=== PATIENT | female | born 1965 | race Two or more races ===

== ENCOUNTER 2018-01-24 15:33 | Inpatient (IN) | payer MEDICARE, OTHER, MEDICAID ==
[~2018-01-24] VITALS: Ht 158.8 cm; Wt 103.4 kg
[2018-01-24] MEDS ORDERED: ZOLPIDEM TARTRATE 5 MG TABLET PO PRN (16:30)
[2018-01-24] MEDS ORDERED: MAG HYDROX/AL HYDROX/SIMETH 30 ML UDC PO PRN (16:30)
[2018-01-24] MEDS ORDERED: MAGNESIUM HYDROXIDE 30 ML UDC PO PRN (16:30)
[2018-01-24] MEDS ORDERED: ACETAMINOPHEN 325 MG TABLET PO PRN (16:30)
[2018-01-24] MEDS ORDERED: LORAZEPAM 0.5 MG TABLET PO PRN (16:30)
[2018-01-24 16:40] VITALS: BP 122/66
[2018-01-24] MEDS ORDERED: NAPR500T6 PO (17:00)
[2018-01-24] MEDS ORDERED: LEVE500T20 PO (17:00)
[2018-01-24] MEDS ORDERED: ZIPR20CA2 PO (17:00)
[2018-01-24] MEDS ORDERED: LEVE500T9 PO (17:00)
[2018-01-24] MEDS ORDERED: HYDR-552 PO (17:00)
[2018-01-24] MEDS ORDERED: DULO60CA63 PO (17:00)
[2018-01-24] MEDS ORDERED: TOPI25TA49 PO (17:00)
[2018-01-24] MEDS ORDERED: LORA-259 PO (17:00)
[2018-01-24] MEDS ORDERED: ASPI-1169 PO (17:00)
--- NOTE | 2018-01-24 17:30 | NUR ---
GPS/RN - Admission Admitted a 52 y/o female from [facility] (), on a 5150 hold for DTS and GD. Patient is alert and oriented x 3, calm at this time, ambulatory with steady gait, denies pain, no apparent distress seen. Patient refused skin assessment. Patient oriented to the room. All belongings accounted and checked for contraband. Reviewed patient's rights and she verbalized full understanding. Fall precautions initiated. Patient will be under the care of Dr. Berrios, orders obtained. Will continue to monitor q15 mins for safety and behavior.
--- NOTE | 2018-01-24 18:00 | NUR ---
GPS/RN - Notes Paged Jasvir Thomas NP for medication reconciliation, awaiting for call back.
[2018-01-24 19:56] VITALS: BP 135/83
[2018-01-24 20:00] VITALS: BP 135/83
--- NOTE | 2018-01-24 22:51 | NUR ---
GPS/TELECOMMUNICATION TOWER TECHNICIAN NOTES: PT. AGITATED AND YELLING IN THE HALLS. PT. ALSO FORCING HERSELF TO SIT ON THE FLOOR. ATIVAN PO PRN OFFERED. PT. REFUSED. WILL CONTINUE TO MONITOR.
[2018-01-24] MEDS: LEVETIRACETAM (250 MG) 250 MG TABLET PO SCH (23:18)
[2018-01-24] MEDS: HYDROCODONE/APAP 5/325MG 1 EACH TABLET PO PRN (23:19)
[2018-01-25 07:36] LABS: CHOLESTEROL 218 mg/dL (<200); HDL CHOLESTEROL 51 mg/dL (40-60); LDL 145 mg/dL (0-99); TRIGLYCERIDES 146 mg/dL (30-150)
[2018-01-25 07:39] LABS: ALBUMIN 4.1 g/dL (3.4-5.0); BILIRUBIN,TOTAL 0.5 mg/dL (0.2-1.0); CREATININE 0.9 mg/dL (0.6-1.3); POTASSIUM 3.8 mmol/L (3.5-5.1); TOTAL PROTEIN, SERUM 7.4 g/dL (6.4-8.2)
[2018-01-25 08:00] VITALS: BP 125/69
[2018-01-25] MEDS: NAPROXEN 500 MG TABLET PO SCH ×2 (09:40→16:33)
[2018-01-25] MEDS: ASPIRIN 81 MG TAB.CHEW PO SCH (09:40)
[2018-01-25] MEDS: CEPHALEXIN MONOHYDRATE 500 MG CAPSULE PO SCH ×2 (09:40→21:50)
[2018-01-25] MEDS: TOPIRAMATE 25 MG TABLET PO SCH ×2 (09:40→21:50)
[2018-01-25] MEDS: ZIPRASIDONE 20 MG CAPSULE PO SCH ×2 (10:46→16:33)
[2018-01-25] MEDS: LEVETIRACETAM (250 MG) 250 MG TABLET PO SCH ×2 (10:46→22:09)
[2018-01-25] MEDS: LORAZEPAM 0.5 MG TABLET PO PRN ×2 (10:47→23:57)
--- NOTE | 2018-01-25 15:58 | NUR ---
Initial Discharge Plan: Pt resides at [address] [place] [address]. Pts # is . Upon discharge pt would like to return home. SW will follow up to ensure pt is safely and appropriately discharged. Pts contact lens inspector is her brother Deion Rodriguez, stating "he is going to be my ride and pick me up." Pt however was unable to recall his telephone #.
[2018-01-25 16:00] VITALS: BP 100/69
[2018-01-25 20:00] VITALS: BP 128/83
[2018-01-25] MEDS: diphenhydrAMINE HCL 50 MG CAPSULE PO PRN (21:50)
[2018-01-25] MEDS ORDERED: DULOXETINE HCL 30 MG CAPSULE.DR PO SCH (22:00)
[2018-01-26] MEDS: LORAZEPAM 0.5 MG TABLET PO PRN ×3 (06:40→20:13)
[2018-01-26] MEDS: TOPIRAMATE 25 MG TABLET PO SCH ×2 (08:06→22:05)
[2018-01-26] MEDS: NAPROXEN 500 MG TABLET PO SCH ×2 (08:06→16:59)
[2018-01-26] MEDS: LEVETIRACETAM (250 MG) 250 MG TABLET PO SCH ×2 (08:06→22:04)
[2018-01-26] MEDS: ASPIRIN 81 MG TAB.CHEW PO SCH (08:06)
[2018-01-26] MEDS: ZIPRASIDONE 20 MG CAPSULE PO SCH ×2 (08:06→16:59)
[2018-01-26] MEDS: CEPHALEXIN MONOHYDRATE 500 MG CAPSULE PO SCH ×2 (08:06→22:04)
[2018-01-26 08:33] VITALS: BP 137/90
[2018-01-26] MEDS: HYDROCODONE/APAP 5/325MG 1 EACH TABLET PO PRN (12:36)
[2018-01-26] MEDS ORDERED: ZIPRASIDONE 20 MG CAPSULE PO ONE (13:00)
[2018-01-26 16:00] VITALS: BP 119/84
[2018-01-26 20:00] VITALS: BP 122/77
[2018-01-26] MEDS: diphenhydrAMINE HCL 50 MG CAPSULE PO PRN (22:05)
[2018-01-26] MEDS: DULOXETINE HCL 20 MG CAPSULE.DR PO SCH (22:05)
[2018-01-27 08:00] VITALS: BP 126/79
[2018-01-27] MEDS: TOPIRAMATE 25 MG TABLET PO SCH ×2 (09:13→21:26)
[2018-01-27] MEDS: ZIPRASIDONE 20 MG CAPSULE PO SCH (09:14)
[2018-01-27] MEDS: LEVETIRACETAM (250 MG) 250 MG TABLET PO SCH ×2 (09:15→21:25)
[2018-01-27] MEDS: LORAZEPAM 0.5 MG TABLET PO PRN ×2 (09:18→13:54)
[2018-01-27] MEDS: ASPIRIN 81 MG TAB.CHEW PO SCH (09:18)
[2018-01-27] MEDS: NAPROXEN 500 MG TABLET PO SCH ×2 (09:18→17:56)
[2018-01-27] MEDS: CEPHALEXIN MONOHYDRATE 500 MG CAPSULE PO SCH ×2 (09:18→21:24)
--- NOTE | 2018-01-27 09:18 | NUR ---
RN NOTES ADMINISTERED ATIVAN 1 MG PO PRN FOR ANXIETY, IRRITABLE EASILY, ARGUMENTATIVE, V/S TAKEN BP 126/79, P-87, CONTINUED MONITORING.
[2018-01-27] MEDS: HYDROCODONE/APAP 5/325MG 1 EACH TABLET PO PRN ×2 (10:40→18:21)
--- NOTE | 2018-01-27 10:40 | NUR ---
RN NOTES ADMINISTERED NARCO 5/325 MG PO PRN FOR GENERALIZED PAIN 05/14, PER PATIENT REQUEST, V/S TAKEN BP- 126/ 79, P-87, ENCOURAGED TO INCREASE FLUID INTAKE, CONTINUED MONITORING.
--- NOTE | 2018-01-27 13:54 | NUR ---
RN NOTES ADMINISTERED ATIVAN 1 MG PO PRN FOR ANXIETY, PARANOIA, HARD TO FOLLOW DIRECTION, V/S TAKEN STABLE BP 129/81, P-90, CONTINUED MONITORING.
[2018-01-27] MEDS ORDERED: LORAZEPAM 0.5 MG TABLET PO PRN (14:00)
[2018-01-27 15:47] VITALS: BP 128/80
--- NOTE | 2018-01-27 18:21 | NUR ---
rn notes administered narco 5/325 mg po prn for generalized pain 04/14 per patient request, v/s taken bp- 128/80, p-88, continued monitoring.
[2018-01-27 20:26] VITALS: BP 136/93
[2018-01-27] MEDS: DULOXETINE HCL 20 MG CAPSULE.DR PO SCH (21:25)
[2018-01-27] MEDS: diphenhydrAMINE HCL 50 MG CAPSULE PO PRN (22:29)
[2018-01-28] MEDS: LORAZEPAM 0.5 MG TABLET PO PRN ×2 (00:21→06:25)
[2018-01-28 08:00] VITALS: BP 134/92
[2018-01-28] MEDS: LEVETIRACETAM (250 MG) 250 MG TABLET PO SCH ×2 (08:29→21:55)
[2018-01-28] MEDS: NAPROXEN 500 MG TABLET PO SCH ×2 (08:29→17:02)
[2018-01-28] MEDS: CEPHALEXIN MONOHYDRATE 500 MG CAPSULE PO SCH ×2 (08:29→21:53)
[2018-01-28] MEDS: ASPIRIN 81 MG TAB.CHEW PO SCH (08:29)
[2018-01-28] MEDS: TOPIRAMATE 25 MG TABLET PO SCH ×2 (08:29→21:54)
[2018-01-28] MEDS: OLANZAPINE 5 MG/TAB.RAPDIS PO SCH ×2 (09:35→17:02)
[2018-01-28] MEDS: HYDROCODONE/APAP 5/325MG 1 EACH TABLET PO PRN (09:39)
--- NOTE | 2018-01-28 09:47 | NUR ---
GPS/RN-NOTES PATIENT C/O 05/14 HEADACHE AND REQUESTING FOR NORCO.NORCO 5/325MG 1TAB P.O GIVEN PRN ORDER. WILL CONT. MONITORING FOR SAFETY.
--- NOTE | 2018-01-28 14:22 | NUR ---
Discharge Planning: SW spoke to pt for discharge planning purposes. SW sought clarity as to where patient would be discharging once she is stable and ready. Per pt, she would like to discharge home, [address] [place] [address]. Pt reported that she and her son pay rent. SW discussed alternative placement options for transitional purposes however pt denied stating, "I want to return to my home, that's my home, I just need in home care" (i.e. for showers and errands) once discharged. FAIZA obtained verbal consent from pt to contact her son, Bryce for discharge planning purposes. SW contacted pts son, however was unable to speak to him; a detailed message was left asking for a call back. SW will follow up to ensure pt is safely and adequately placed.
[2018-01-28 16:00] VITALS: BP 120/69
[2018-01-28 17:04] LABS: MAGNESIUM 2.3 mg/dL (1.8-2.4)
[2018-01-28 17:44] LABS: THYROID STIMULATING HORMONE 1.04 uIU/mL (0.358-3.74)
[2018-01-28 20:26] VITALS: BP 122/75
[2018-01-28] MEDS: DULOXETINE HCL 20 MG CAPSULE.DR PO SCH (21:53)
--- NOTE | 2018-01-28 22:00 | NUR ---
GPS RN NOTES: PATIENT NOTED TO BE DELUSIONAL THIS TIME,SHE STATED "I RECRUIT FOR [employer], BECAUSE THEY TRY TO SCAM US" AT THE SAME TIME LAUGHING AT THE STAFF SHE MADE THIS STATEMENT. REALITY ORIENTATION DONE. LIMIT SETTING DONE. ATTENDED TO PATIENT'S NEEDS. WILL ENDORSE THE SAID COMMENT TO THE DAY SHIFT NURSE.
[2018-01-28 23:02] VITALS: BP 115/50
[2018-01-29] MEDS: LORAZEPAM 0.5 MG TABLET PO PRN ×3 (03:00→15:34)
[2018-01-29 05:37] VITALS: BP 112/69
[2018-01-29] MEDS: HYDROCODONE/APAP 5/325MG 1 EACH TABLET PO PRN (05:37)
[2018-01-29 08:00] VITALS: BP 119/68
[2018-01-29] MEDS: LEVETIRACETAM (250 MG) 250 MG TABLET PO SCH ×2 (08:28→21:11)
[2018-01-29] MEDS: OLANZAPINE 5 MG/TAB.RAPDIS PO SCH ×2 (08:29→16:16)
[2018-01-29] MEDS: ASPIRIN 81 MG TAB.CHEW PO SCH (08:29)
[2018-01-29] MEDS: NAPROXEN 500 MG TABLET PO SCH ×2 (08:29→16:15)
[2018-01-29] MEDS: TOPIRAMATE 25 MG TABLET PO SCH ×2 (08:29→21:11)
[2018-01-29] MEDS: CEPHALEXIN MONOHYDRATE 500 MG CAPSULE PO SCH ×2 (08:30→21:10)
--- NOTE | 2018-01-29 08:51 | NUR ---
RN NOTE: PATIENT IS ANXIOUS. PRN LORAZEPAM 1MG. GIVEN.
--- NOTE | 2018-01-29 15:34 | NUR ---
PATIENT IS ANXIOUS. LORAZEPAM 1MG GIVEN. Addendum: 01/29/18 at 1539 by LATISHA HANKS RN THE PATIENT IS VERY SARCASTIC. PATIENT IS MAKING OTHER PATIENT AGITATED BY TRYING TO TALK TO HIM AND TEACHING HIM HER IDEOLOGIES.
[2018-01-29 16:12] VITALS: BP 141/75
[2018-01-29 20:00] VITALS: BP 122/77
[2018-01-29] MEDS: DULOXETINE HCL 20 MG CAPSULE.DR PO SCH (21:31)
[2018-01-30 08:00] VITALS: BP 135/85
[2018-01-30] MEDS: NAPROXEN 500 MG TABLET PO SCH ×2 (08:19→17:15)
[2018-01-30] MEDS: LEVETIRACETAM (250 MG) 250 MG TABLET PO SCH ×2 (08:19→21:22)
[2018-01-30] MEDS: TOPIRAMATE 25 MG TABLET PO SCH (08:19)
[2018-01-30] MEDS: CEPHALEXIN MONOHYDRATE 500 MG CAPSULE PO SCH ×2 (08:19→20:48)
[2018-01-30] MEDS: LORAZEPAM 0.5 MG TABLET PO PRN ×2 (08:19→13:05)
[2018-01-30] MEDS: OLANZAPINE 5 MG/TAB.RAPDIS PO SCH ×3 (08:19→17:15)
[2018-01-30] MEDS: ASPIRIN 81 MG TAB.CHEW PO SCH (08:19)
[2018-01-30] MEDS: HYDROCODONE/APAP 5/325MG 1 EACH TABLET PO PRN ×2 (10:55→21:39)
--- NOTE | 2018-01-30 10:56 | NUR ---
RN NOTE: PATIENT STATES SHE HAS PAIN. 8/10 PAIN. PATIENT GIVEN HYDROCODONE.
--- NOTE | 2018-01-30 13:06 | NUR ---
RN NOTE: PATIENT IS ANXIOUS. LORAZEPAM 1MG GIVEN.
--- NOTE | 2018-01-30 15:57 | NUR ---
Discharge Planning: SW spoke to pts brother, Nilson Garrido for discharge planning purposes. Per pts brother, pt could discharge back to their home "we just want her to be better and take her medication." Pts brother discussed concerns about pt not being med compliant which leads to her erratic behavior. SW obtained Deion's contact information (pts other brother) for discharge planning purposes (Deion Garrido [phone]). SW informed pt of having spoken to her family and that family was in agreement with her return home. Pt agreed to discharge home. Pt was in agreement with having her brother Deion pick her up from the hospital once she is ready to discharge. SW will follow up to ensure pt is safely and adequately discharged.
[2018-01-30 16:00] VITALS: BP 122/76
[2018-01-30 19:59] VITALS: BP 110/65
[2018-01-30] MEDS: DULOXETINE HCL 20 MG CAPSULE.DR PO SCH (21:22)
[2018-01-30] MEDS: TOPIRAMATE 100 MG TABLET PO SCH (21:29)
--- NOTE | 2018-01-30 21:39 | NUR ---
GPS NOTE: PATIENT C/O HEADACHE 05/14, PATIENT REQUESTED FOR NORCO. VSS. ADMINISTERED NORCO 5/325MG PO ORDERED. WILL CONTINUE TO MONITOR.
[2018-01-31] MEDS: HYDROCODONE/APAP 5/325MG 1 EACH TABLET PO PRN ×2 (05:59→15:29)
--- NOTE | 2018-01-31 06:01 | NUR ---
GPS NOTE: PATIENT C/O HEADACHE 05/14, PATIENT REQUESTED FOR NORCO. VSS. ADMINISTERED NORCO 5/325MG PO ORDERED. WILL CONTINUE TO MONITOR.
[2018-01-31] MEDS: LORAZEPAM 0.5 MG TABLET PO PRN ×2 (06:24→10:42)
--- NOTE | 2018-01-31 06:24 | NUR ---
GPS/RN PATIENT IS ANXIOUS AND RESTLESS. PATIENT IS REQUESTING FOR ATIVAN. VSS. ADMINISTERED ATIVAN 1MG PO ORDERED. WILL CONTINUE TO MONITOR FOR SAFETY.
[2018-01-31 08:00] VITALS: BP 127/88
[2018-01-31] MEDS: TOPIRAMATE 100 MG TABLET PO SCH ×2 (08:37→20:26)
[2018-01-31] MEDS: ASPIRIN 81 MG TAB.CHEW PO SCH (08:37)
[2018-01-31] MEDS: NAPROXEN 500 MG TABLET PO SCH ×2 (08:37→17:29)
[2018-01-31] MEDS: CEPHALEXIN MONOHYDRATE 500 MG CAPSULE PO SCH ×2 (08:37→20:25)
[2018-01-31] MEDS: OLANZAPINE 5 MG/TAB.RAPDIS PO SCH ×2 (08:42→17:29)
[2018-01-31] MEDS: LEVETIRACETAM (250 MG) 250 MG TABLET PO SCH ×2 (08:42→21:13)
--- NOTE | 2018-01-31 10:00 | NUR ---
RN-CO: Patient is going from one patient to another, instigating them to complain staff. Patient is accusing staff not doing work. " Brain washing" other patient to answer back and not to listen to redirections. When she was redirected, she became argumentative and and angry. Hyperverbal, speech is rapid and her eye contact is intense. Constantly asking staff to give her what she wants. If we discussed about her discharge , she stated " I like it here, Im comfortable here." But when she talks to peers during group activities she is telling them that staff are not nice, RNs are giving wrong medications. Cameras are all over to monitor me. Dr Berrios made aware.
[2018-01-31 16:00] VITALS: BP 150/94
--- NOTE | 2018-01-31 18:56 | NUR ---
RN-CO: Patient had a visitor, patient noted telling them that staff are pushing patient. When her visitors left, she came to the nursing station and stated " My visitors sucks, I don't like them. "Give me the phone and I will call a nicer visitor."
[2018-01-31 20:00] VITALS: BP 113/75
[2018-01-31] MEDS: diphenhydrAMINE HCL 50 MG CAPSULE PO PRN (20:28)
--- NOTE | 2018-01-31 20:33 | NUR ---
C/O INSOMNIA, BENADRYL 50 MG CAP 1 PO GIVEN.
[2018-01-31] MEDS: DULOXETINE HCL 20 MG CAPSULE.DR PO SCH (21:13)
[2018-02-01 08:00] VITALS: BP 128/76
[2018-02-01] MEDS: LEVETIRACETAM (250 MG) 250 MG TABLET PO SCH ×2 (08:15→21:08)
[2018-02-01] MEDS: ASPIRIN 81 MG TAB.CHEW PO SCH (08:16)
[2018-02-01] MEDS: OLANZAPINE 5 MG/TAB.RAPDIS PO SCH ×2 (08:16→16:58)
[2018-02-01] MEDS: NAPROXEN 500 MG TABLET PO SCH ×2 (08:16→16:58)
[2018-02-01] MEDS: TOPIRAMATE 100 MG TABLET PO SCH ×2 (08:20→21:09)
[2018-02-01] MEDS: LORAZEPAM 0.5 MG TABLET PO PRN ×2 (08:20→17:16)
--- NOTE | 2018-02-01 08:23 | NUR ---
NOTE: PATIENT IS ANXIOUS AND RESTLESS LORAZEPAM 1MG GIVEN. WILL CONTINUE MONITORING
[2018-02-01] MEDS: HYDROCODONE/APAP 5/325MG 1 EACH TABLET PO PRN (11:49)
[2018-02-01 16:00] VITALS: BP 151/76
--- NOTE | 2018-02-01 17:19 | NUR ---
GPS RN NOTE: PATIENT IS ANXIOUS REQUESTING ATIVAN , LORAZEPAM 1MG GIVEN. WILL CONTINUE MONITORING.
--- NOTE | 2018-02-01 19:30 | NUR ---
GPS RN NOTE, RECEIVED PATIENT AWAKE AND IN BED, NO S/S OR COMPLAINTS OF PAIN AT THIS TIME. PATIENT IS DISPLAYING NO S/S OF APPARENT DISTRESS AT THIS TIME. PATIENT BREATHING IS UNLABORED WITH EQUAL RISE AND FALL OF THE CHEST. PATIENT IS ALERT AND ORIENTED X 4 ON ROOM AIR WITH A SPO2 OF 93%. PATIENT IS COMPLIANT WITH MEDICATION, ANXIOUS AT TIMES, DEMANDING, MANIPULATIVE, AND NEEDS REORIENTATION. PATIENT DENIES SUICIDE IDEATIONS AND HOMICIDAL IDEATIONS AT THIS TIME. PATIENT ASSISTED WITH TURNING AND REPOSITIONING Q2HR AND PRN FOR COMFORT AND CIRCULATION. PATIENT HAS NO NEEDS AT THIS TIME. PATIENT EDUCATED ON THE USE OF THE CALL MCKENNA. PATIENT SIDE RAILS ARE UP X 2, BED IS LOCKED AND LOW, AND I WILL CONTINUE TO MONITOR THIS PATIENT Q 15 MIN WITH THE HELP OF STAFF.
[2018-02-01 20:00] VITALS: BP 98/57
[2018-02-01] MEDS: DULOXETINE HCL 20 MG CAPSULE.DR PO SCH (21:09)
[2018-02-02] MEDS: HYDROCODONE/APAP 5/325MG 1 EACH TABLET PO PRN (01:58)
--- NOTE | 2018-02-02 01:58 | NUR ---
GPS RN NOTE, PATIENT HAS A COMPLAINT OF LOWER BACK PAIN AT 6 OUT 10 ON THE PAIN SCALE AND IS REQUESTING NORCO AT THIS TIME. PATIENT VITAL SIGNS ARE STABLE. GAVE NORCO 5-325 1 TAB PO Q6HR PRN ORDERED. WILL REASSESS FOR PAIN AND I WILL CONTINUE TO MONITOR THIS PATIENT.
[2018-02-02] MEDS: LORAZEPAM 0.5 MG TABLET PO PRN ×3 (04:21→13:24)
--- NOTE | 2018-02-02 04:21 | NUR ---
GPS RN NOTE, PATIENT HAS A COMPLAINT OF FEELING ANXIOUS AND IS REQUESTING ATIVAN AT THIS TIME. PATIENT VITAL SIGNS ARE STABLE. GAVE ATIVAN 1MG PO Q8HR PRN ORDERED. WILL REASSESS FOR ANXIETY AND I WILL CONTINUE TO MONITOR THIS PATIENT.
[2018-02-02 08:00] VITALS: BP 141/81
[2018-02-02] MEDS: LEVETIRACETAM (250 MG) 250 MG TABLET PO SCH ×2 (08:14→22:21)
[2018-02-02] MEDS: NAPROXEN 500 MG TABLET PO SCH ×2 (08:15→16:40)
[2018-02-02] MEDS: OLANZAPINE 5 MG/TAB.RAPDIS PO SCH ×2 (08:15→16:40)
[2018-02-02] MEDS: ASPIRIN 81 MG TAB.CHEW PO SCH (08:17)
--- NOTE | 2018-02-02 08:17 | NUR ---
RN NOTES PATIENT VERY ANXIOUS, PARANOID, IRRITABLE, INTRUSIVE, HARD TO FOLLOW DIRECTION, ADMINISTERED ATIVAN 1 MG PO PRN PRESCRIBED BY MD, V/S TAKEN BP-141/81, P-90, CONTINUED MONITORING.
[2018-02-02] MEDS: TOPIRAMATE 100 MG TABLET PO SCH ×2 (09:51→22:19)
[2018-02-02 20:00] VITALS: BP 131/74
[2018-02-02] MEDS: DULOXETINE HCL 20 MG CAPSULE.DR PO SCH (22:21)
[2018-02-03] MEDS: LORAZEPAM 0.5 MG TABLET PO PRN ×2 (06:44→12:22)
[2018-02-03 08:00] VITALS: BP 131/73
[2018-02-03] MEDS: OLANZAPINE 5 MG/TAB.RAPDIS PO SCH ×2 (08:41→16:14)
[2018-02-03] MEDS: LEVETIRACETAM (250 MG) 250 MG TABLET PO SCH ×2 (08:42→21:25)
[2018-02-03] MEDS: ASPIRIN 81 MG TAB.CHEW PO SCH (08:42)
[2018-02-03] MEDS: NAPROXEN 500 MG TABLET PO SCH ×2 (08:43→16:14)
[2018-02-03] MEDS: TOPIRAMATE 100 MG TABLET PO SCH ×2 (08:43→21:24)
[2018-02-03] MEDS: HYDROCODONE/APAP 5/325MG 1 EACH TABLET PO PRN (11:04)
--- NOTE | 2018-02-03 11:18 | NUR ---
GPS RN NOTE: PATIENT C/O GENERALIZED PAIN REQUESTED FOR NORCO. VSS. ADMINISTERED NORCO 5/325MG PO ORDERED. WILL CONTINUE TO MONITOR.
[2018-02-03 16:00] VITALS: BP 107/76
[2018-02-03 20:16] VITALS: BP 134/89
[2018-02-03] MEDS: DULOXETINE HCL 20 MG CAPSULE.DR PO SCH (21:25)
[2018-02-03] MEDS: diphenhydrAMINE HCL 50 MG CAPSULE PO PRN (22:57)
[2018-02-04] MEDS: HYDROCODONE/APAP 5/325MG 1 EACH TABLET PO PRN ×2 (02:05→22:59)
[2018-02-04] MEDS: LORAZEPAM 0.5 MG TABLET PO PRN ×2 (05:09→11:30)
[2018-02-04 08:00] VITALS: BP 126/64
[2018-02-04] MEDS: OLANZAPINE 5 MG/TAB.RAPDIS PO SCH ×2 (08:19→16:01)
[2018-02-04] MEDS: LEVETIRACETAM (250 MG) 250 MG TABLET PO SCH ×2 (08:19→21:39)
[2018-02-04] MEDS: NAPROXEN 500 MG TABLET PO SCH ×2 (08:19→16:01)
[2018-02-04] MEDS: ASPIRIN 81 MG TAB.CHEW PO SCH (08:19)
[2018-02-04] MEDS: TOPIRAMATE 100 MG TABLET PO SCH ×2 (08:21→21:40)
--- NOTE | 2018-02-04 11:31 | NUR ---
GPS RN NOTE: PATIENT IS ANXIOUS REQUESTING ATIVAN , LORAZEPAM 1MG GIVEN. WILL CONTINUE MONITORING.
[2018-02-04 16:00] VITALS: BP 102/57
--- NOTE | 2018-02-04 19:23 | NUR ---
GPS RN NOTE, RECEIVED PATIENT AWAKE AND IN BED, NO S/S OR COMPLAINTS OF PAIN AT THIS TIME. PATIENT IS DISPLAYING NO S/S OF APPARENT DISTRESS AT THIS TIME. PATIENT BREATHING IS UNLABORED WITH EQUAL RISE AND FALL OF THE CHEST. PATIENT IS ALERT AND ORIENTED X 4 ON ROOM AIR WITH A SPO2 OF 93%. PATIENT IS COMPLIANT WITH MEDICATION, ANXIOUS AT TIMES, DEMANDING, MANIPULATIVE, NEEDY, COOPERATIVE AT TIMES, AND NEEDS REORIENTATION. PATIENT DENIES SUICIDE IDEATIONS AND HOMICIDAL IDEATIONS AT THIS TIME. PATIENT ASSISTED WITH TURNING AND REPOSITIONING Q2HR AND PRN FOR COMFORT AND CIRCULATION. PATIENT HAS NO NEEDS AT THIS TIME. PATIENT EDUCATED ON THE USE OF THE CALL MCKENNA. PATIENT SIDE RAILS ARE UP X 2, BED IS LOCKED AND LOW, AND I WILL CONTINUE TO MONITOR THIS PATIENT Q 15 MIN WITH THE HELP OF STAFF.
[2018-02-04 19:49] VITALS: BP 120/85
[2018-02-04] MEDS: DULOXETINE HCL 20 MG CAPSULE.DR PO SCH (21:39)
[2018-02-05] MEDS: LORAZEPAM 0.5 MG TABLET PO PRN ×2 (01:02→08:50)
--- NOTE | 2018-02-05 01:02 | NUR ---
GPS RN NOTE, PATIENT HAS A COMPLAINT OF FEELING ANXIOUS AND IS REQUESTING ATIVAN AT THIS TIME. PATIENT VITAL SIGNS ARE STABLE. GAVE ATIVAN 1 MG PO Q4HR PRN ORDERED. WILL REASSESS FOR ANXIETY AND I WILL CONTINUE TO MONITOR THIS PATIENT.
[2018-02-05] MEDS: diphenhydrAMINE HCL 50 MG CAPSULE PO PRN (04:01)
[2018-02-05 08:00] VITALS: BP 127/82
[2018-02-05] MEDS: OLANZAPINE 5 MG/TAB.RAPDIS PO SCH ×2 (08:49→17:17)
[2018-02-05] MEDS: TOPIRAMATE 100 MG TABLET PO SCH (08:50)
[2018-02-05] MEDS: LEVETIRACETAM (250 MG) 250 MG TABLET PO SCH (08:50)
[2018-02-05] MEDS: ASPIRIN 81 MG TAB.CHEW PO SCH (08:50)
[2018-02-05] MEDS: NAPROXEN 500 MG TABLET PO SCH ×2 (08:50→17:16)
[2018-02-05] MEDS: HYDROCODONE/APAP 5/325MG 1 EACH TABLET PO PRN (11:13)
--- NOTE | 2018-02-05 12:48 | NUR ---
Discharge Note: Patient will be discharged back home [address] [place] [address]. Pts # is . Patients brother Deion Garrido [phone] was notified, is agreeable with the discharge plan and will order picker pt. via private vehicle. Patient is agreeable with the discharge plan and appears calm and cooperative. Patient denies suicidal and homicidal ideations. Patient will follow-up with industrial aerial installer is Dr. Che Mosher ([phone]) [address] [place] [address] [address] her psychiatrist Dr[address] Webb ([phone] [id number] [address]. Facilitated info to IDT team who are in agreement with discharge arrangement. The multidisciplinary exitcare form was done, printed, signed, and given to the patient.
--- NOTE | 2018-02-05 15:42 | NUR ---
loft worker pile driving faxed referral to [facility] . loft worker pile driving will follow-up.
[2018-02-05 15:58] VITALS: BP 128/64
--- NOTE | 2018-02-05 18:54 | NUR ---
DISCHARGE NOTE: PATIENT LEFT THE UNIT WITH BROTHER AND SON AT 1850. PATIENT RECEIVED DISCHARGE ORDER FROM [facility], DISCONTINUED HOLD, AND PRESCRIPTION. WINIFRED MADE AWARE OF DISCHARGE AND RECONCILE MEDS. PATIENT IS MEDICALLY STABLE FOR DISCHARGE. PATIENT DENIES SI/HI DURING DISCHARGE. BELONGINGS GIVEN AND LEFT WITH PATIENT. EXIT CARE PAPERS SIGNS AND EXPLAINED TO PATIENT.
== END 2018-02-05 19:42 | disposition home or self-care (01) | DRG 885 ==
LOC: GPS 16:05
PROVIDERS: ADMIT Psychiatry & Neurology Psychiatry; ATTEND Psychiatry & Neurology Psychiatry
DX: F31.2 Bipolar disorder, current episode manic severe with psychotic features (principal); F03.90 Unspecified dementia, unspecified severity, without behavioral disturbance, psychotic disturbance, mood disturbance, and anxiety; E66.01 Morbid (severe) obesity due to excess calories; N39.0 Urinary tract infection, site not specified; Z68.41 Body mass index [BMI] 40.0-44.9, adult; F29 Unspecified psychosis not due to a substance or known physiological condition; G40.909 Epilepsy, unspecified, not intractable, without status epilepticus; F41.9 Anxiety disorder, unspecified; R51 Headache; Z90.710 Acquired absence of both cervix and uterus; Z86.73 Personal history of transient ischemic attack (TIA), and cerebral infarction without residual deficits; Z82.0 Family history of epilepsy and other diseases of the nervous system; G89.29 Other chronic pain; I45.81 Long QT syndrome
CPT/HCPCS: 36415; 80053-TC; 80061-TC; 83735-TC; 84439-TC; 84443-TC; 87081-TC; 93307-TC; Q0163